=== PATIENT | male | born 1995 | race Caucasian/White ===

== ENCOUNTER 2016-10-24 20:28 | Emergency (ER) | payer BC ==
[2016-10-24 21:58] VITALS: BP 158/89
[2016-10-24] MEDS ORDERED: Bacitracin Oint 1 GM U/D Packet TOP ONE (22:19)
[2016-10-24] MEDS ORDERED: Diphtheria,Pertussis(Acell),Tetanus Vaccine 0.5 ML SDV IM ONE (22:20)
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
== END 2016-10-24 22:52 | disposition home or self-care (01) ==
LOC: JP.ED 20:28
DX: T23.252A Burn of second degree of left palm, initial encounter (principal); F17.210 Nicotine dependence, cigarettes, uncomplicated; Z23 Encounter for immunization
CPT/HCPCS: 16020; 90471; 90715; 99283-25